=== PATIENT | female | born 1980 | race Caucasian/White ===

== ENCOUNTER 2022-06-02 08:19 | Outpatient (CLI) | payer OTHER, SELFPAY ==
[2022-06-02 08:50] LABS: Basophils Absolute Auto 0.1 K/mm3 (0.0-0.1); Basophils Percent Auto 0.8 % (0.2-1.2); Eosinophils Absolute Auto 0.3 K/mm3 (0-0.3); Eosinophils Percent Auto 2.5 % (0-4.4); Hematocrit 39.8 % (37.0-47.0); Hemoglobin 12.8 g/dL (12.0-15.0); Immature Granulocyte Absolute 0.05 K/mm3 (0.00-0.031); Immature Granulocyte Percent A 0.5 % (0-0.5); Lymphocytes Percent Auto 18.7 % (18.3-44.2); Mean Corpuscular HGB Conc 32.2 g/dl (32-36); Mean Corpuscular Hemoglobin 27.6 pg (26-34); Mean Corpuscular Volume 85.8 fl (80-100); Mean Platelet Volume 10.1 fl (7.4-10.4); Monocytes Absolute Auto 0.8 K/mm3 (0.1-0.6); Monocytes Percent Auto 8.2 % (2.6-8.5); Neutrophils Percent Auto 69.3 % (45.5-73.1); Platelet Count Result 423 k/mm3 (150-375); Red Blood Count 4.64 M/mm3 (4.2-5.4); Red Cell Distribution Width 14.3 % (11.5-14.5); White Blood Count 10.1 K/mm3 (4.5-10.0)
[2022-06-02 08:56] LABS: Anion Gap 6 mmol/L (8-16); Blood Urea Nitrogen 10 mg/dL (7-17); Calcium 8.8 mg/dL (8.4-10.2); Carbon Dioxide 27 mmol/L (22-30); Chloride 106 mmol/L (98-107); Estimated Glomerular Filt Rate > 60; Glucose 99 mg/dL (65-110); Potassium 3.8 mmol/L (3.4-5.0); Sodium 139 mmol/L (137-145)
== END 2022-06-02 08:20 | disposition home or self-care (01) ==
PROVIDERS: Anesthesiology; Visit Provider Obstetrics & Gynecology
DX: N81.4 Uterovaginal prolapse, unspecified (principal); E11.9 Type 2 diabetes mellitus without complications
CPT/HCPCS: 36415; 80048; 85025; 86850; 86900; 86901

== ENCOUNTER 2022-06-04 01:07 | Day surgery (SDC) | payer OTHER, SELFPAY ==
[2022-05-20 09:46] VITALS: BMI 27.2
--- NOTE | 2022-05-20 10:17 | PC.NURSE ---
Report to the Outpatient Waiting Room, entrance under the green pavilion located off [facility], at time _0730 on date 06/04/22. Planned Procedure Time: _0930. Time changes happen often and if your time is changed the preop area will call you the afternoon before. - You and your visitor will be asked to self-screen and do not enter if you have any COVID symptoms. - Only one visitor is requested with a max of two and NO children visitors are allowed at this time. - The patient visitor may be requested to leave or wait in car when not with patient due to distancing restrictions. - A mask is optional within the hospital. Patients may have clear liquids (water, carbonated beverages, clear teas, apple juice) until 3 hours prior to surgery with a maximum of 20 ounces. - No food from midnight until time of surgery - Infants may have breast milk until 4 hours before surgery, infant formula 6 hours prior to surgery. - Children will be allowed to drink immediately following surgery. If applicable, please bring a bottle or sippy cup to assist with drinking. Juice, water, soda, and popsicles are readily available. For infants on formula, please bring formula the day of surgery. Pacifiers are allowed. Take the following medications with a SIP of water the morning of surgery: HYDROXYZINE, sertraline Medications to discontinue per physician _vitamins__ Date to take last dose_06/01/22_ Please no make-up, nail uzbek, hairspray, perfume, deodorant, or body powder the day of surgery. No jewelry (including any body piercings) or valuables the day of surgery, leave them at home. Please take a shower or bath the night before, or the morning of, surgery with an antibacterial soap. Wear comfortable, loose fitting clothing. Children are encouraged to wear pajamas. - Jewelry must be removed prior to entering the operating room. Rings and piercings that are not removed may be cut off. - The hospital will not accept responsibility for valuables. - Please leave all valuables, including medications, at home the day of surgery. If you are going home after surgery, a licensed dedicated truck driver must drive you home. - NO public transportation without another adult if you receive anesthesia. - We recommend that an adult stay with you for 24 hours following discharge. - We also recommend that you do not drive, make important decision, drink alcoholic beverages, or take any drugs that were not prescribed by your health care provider for at least 24 hours after your discharge time. For Pediatric surgeries, we recommend two adults accompany the child home. Follow any additional instructions given to you from your surgeon. If you or anyone in your household have experienced Covid symptoms in the past week, please notify your surgeon or the nurse liaison at the phone number below for possible testing. Telephone instructions given to Ange Valencia_and asked if any additional questions and then verbalized understanding. Patient advised to call surgeon office or pre surgery nurse liaison [phone] if any additional questions.
--- NOTE | 2022-06-02 07:48 | PM.IMHP ---
H&P: HPI History of Present Illness Date/Time: 06/02/22 07:48 Chief Complaint: Pelvic pain and dysmenorrhea Narrative: Is a 41-year-old multiparous patient admitted for robotic hysterectomy and bilateral salpingectomy secondary to uterine prolapse pain and discomfort. She has painful periods and dyspareunia menorrhea. She has signed the [place] department of Public aid consent for hysterectomy. She understands this will make her permanently infertile. Risks and benefits including not exclusive of , aspiration pneumonia, bleeding, transfusion, perforation injury to bowel, bladder, ureters, or other internal organs with need for open laparotomy were reviewed. She had all questions answered and asked to proceed PMFSH Family History Family History Mother Hypertension Family history of diabetes mellitus in first degree relative Social History Social History Years smoked: 25 Smoking status: Current every day smoker Tobacco type: cigarettes Alcohol intake: current Substance use: current Substance use type: marijuana Last use: 05/20/22 Spiritual care concerns: No Meds Home Medications and Allergies Home Medications Medication Instructions Recorded Confirmed Type calcium carbonate 600 mg calcium 600 mg PO DAILY 04/16/22 05/20/22 History (1,500 mg) tablet (Calcium) cholecalciferol (vitamin D3) 50 50 mcg PO DAILY 04/16/22 05/20/22 History mcg (2,000 unit) capsule diclofenac sodium 1 % topical gel 2 g topical QID 04/16/22 05/20/22 History (Arthritis Pain (diclofenac)) dulaglutide 3 mg/0.5 mL 3 mg subcut WEEKLY 04/16/22 05/20/22 History subcutaneous pen injector (Trulicity) hydroxyzine HCl 25 mg tablet 25 mg PO TID PRN Anxiety 04/16/22 05/20/22 History pantoprazole 40 mg tablet,delayed 40 mg PO QAM 04/16/22 05/20/22 History release sertraline 50 mg tablet 150 mg PO DAILY 04/16/22 05/20/22 History Allergies Allergy/AdvReac Type Severity Reaction Status Date / Time No Known Allergies Allergy Unknown Verified 04/16/22 08:49 Exam Const: General: cooperative, healthy appearing and comfortable Nutritional Appearance: average body habitus Orientation/consciousness: oriented to person, oriented to place and oriented to time HENMT: Head: normal to inspection Resp: Effort & Inspection: normal respiratory effort Cardio: Rate: regular rate Rhythm: regular rhythm Heart sounds: S1 normal heart sound present and S2 normal heart sound present GI: Inspection: normal to inspection : Speculum Exam - Vagina: normal appearance of the vagina Speculum Exam - Cervix: normal appearance of the cervix and Cervical os closed Bimanual exam- vagina & uterus: boggy, enlarged and Uterus displaced (Second-degree prolapse) Bimanual Exam- Adnexa, other: normal adnexae Assessment and Plan Assessment and plan (1) Uterine prolapse: Code(s): N81.4 - Uterovaginal prolapse, unspecified Status: Acute (2) Pelvic pain: Code(s): R10.2 - Pelvic and perineal pain Status: Acute (3) Dysmenorrhea: Code(s): N94.6 - Dysmenorrhea, unspecified Status: Acute Plan Robotic total vaginal hysterectomy and bilateral salpingectomy
--- NOTE | 2022-06-03 10:41 | WPDANESEPPF ---
Anes - Initial Pre Proc Eval Procedure: Operation Date: 06/04/22 09:30 Proposed Procedures p Robotic Assisted Total Vaginal Hysterectomy with Bilateral Salpingectomy - Prem Mendes MD Date/Time: 06/03/22 10:41 Surgeon: Prem Mendes MD Pre Op Diagnosis: uterine prolapse, pelvic pain, dysmenorrhea Patient Data Age: 41 Gender: F Height: 1.63 m Weight: 72 kg Allergies Allergy/AdvReac Type Severity Reaction Status Date / Time No Known Allergies Allergy Unknown Verified 06/04/22 07:37 Home Medications Medication Instructions Recorded Confirmed Type calcium carbonate 600 mg calcium 600 mg PO DAILY 04/16/22 05/20/22 History (1,500 mg) tablet (Calcium) cholecalciferol (vitamin D3) 50 50 mcg PO DAILY 04/16/22 05/20/22 History mcg (2,000 unit) capsule diclofenac sodium 1 % topical gel 2 g topical QID 04/16/22 05/20/22 History (Arthritis Pain (diclofenac)) dulaglutide 3 mg/0.5 mL 3 mg subcut WEEKLY 04/16/22 05/20/22 History subcutaneous pen injector (Trulicity) hydroxyzine HCl 25 mg tablet 25 mg PO TID PRN Anxiety 04/16/22 05/20/22 History pantoprazole 40 mg tablet,delayed 40 mg PO QAM 04/16/22 05/20/22 History release sertraline 50 mg tablet 150 mg PO DAILY 04/16/22 05/20/22 History hydrocodone 5 mg-acetaminophen 325 1 tablet PO Q4H PRN pain #30 tabs 06/04/22 Rx mg tablet Patient hx anesthesia problems: none Family hx anesthesia problems: none Results Review: All pre-operative results and documents have been reviewed as part of the pre-operative evaluation. [facility] Past Medical History Medical History (Updated 06/04/22 @ 07:18 by Sonny Alarcon DO) Anxiety GERD (gastroesophageal reflux disease) Family History Family History Mother Hypertension Family history of diabetes mellitus in first degree relative Social History Social History (Updated 06/04/22 @ 07:53 by Sonny Alarcon DO) Years smoked: 25 Smoking status: Current every day smoker Tobacco type: cigarettes Alcohol intake: current Substance use: current Substance use type: marijuana Other substance usage details: daily Last use: 06/03/22 Spiritual care concerns: No Anes - Eval Final PreProcedure Day of Procedure 06/03/22 10:41 Patient weight: overweight Heart: regular rate and rhythm Lungs: clear to auscultation Airway: Mallampati scale class II Neurological: alert and oriented Last oral intake: >/= 8 hours ASA classification: III Emergent: no Anesthetic plan: proceed Anesthesia type and monitoring: general ETT and standard monitoring Results Review: All pre-operative results and documents have been reviewed as part of the pre-operative evaluation. Informed Consent: The patient's anesthetic plan and its attendant risks and benefits were discussed with the patient/family/POA. Questions were solicited and answers provided to the satisfaction of the patient/family/POA.
[2022-06-04] VITALS (12 sets, daily range): BP systolic 98–122; BP diastolic 56–78; PULSE 55–100; RESP 14–22; TEMP 36.7–37.2; O2SAT 93–100
--- NOTE | 2022-06-04 06:15 | WPDHPUPDATE1 ---
History and Physical Update Update Date/Time: 06/04/22 06:15 History and Physical has been reviewed, including an updated exam of the patient. There are NO changes in the patient's condition. Risks, benefits, and alternatives have been discussed and questions answered. Patient agrees to proceed with procedure.
[2022-06-04] MEDS: ACETAMINOPHEN 500 MG TABLET 1000 MG PO (07:41)
[2022-06-04] MEDS: LACTATED RINGERS 1,000 ML 30 ML IV CONT ×2 (08:08→10:20)
[2022-06-04] MEDS: KETOROLAC 15 MG/ML VIAL (*BKC) IV PUSH (08:09)
[2022-06-04] MEDS: ceFAZolin 2 GM/D5W 50 ML 2 GM/50 ML BAG IVPB (09:06)
[2022-06-04] MEDS: fentaNYL CITRATE INJ (*CRX) 100 MCG/2 ML VIAL 25 MCG IV PUSH ×6 (10:20→11:48)
--- NOTE | 2022-06-04 12:00 | PC.NURSE ---
Patient transferred to post room #288 via (stretcher ). Support person present. Oriented to unit, room, information board, rooming in, admission packet and security measures. Patient verbalizes understanding.
[2022-06-04] MEDS: HYDROcodone/acetaminophen (*CRX) 10-325 MG TABLET 1 TAB PO ×3 (12:17→22:32)
[2022-06-04] MEDS: DEXTROSE 5%/LACTATED RINGERS 1,000 ML 125 ML IV CONT (12:17)
[2022-06-04] MEDS: DOCUSATE SODIUM 100 MG CAPSULE PO (15:11)
[2022-06-04] MEDS: HYDROcodone/acetaminophen (*CRX) 5-325 MG TABLET 1 TAB PO (19:34)
[2022-06-04] MEDS: IBUPROFEN 600 MG TABLET PO (19:35)
[2022-06-05 04:00] VITALS: BP 93/57; PULSE 66; RESP 18; TEMP 36.8
[2022-06-05] MEDS: HYDROcodone/acetaminophen (*CRX) 10-325 MG TABLET 1 TAB PO ×2 (04:06→07:32)
[2022-06-05] MEDS: SIMETHICONE 80 MG TAB.CHEW PO ×2 (04:07→07:32)
[2022-06-05] MEDS: IBUPROFEN 600 MG TABLET PO (04:07)
[2022-06-05 04:54] LABS: Basophils Absolute Auto 0.1 K/mm3 (0.0-0.1); Basophils Percent Auto 0.4 % (0.2-1.2); Eosinophils Percent Auto 0.2 % (0-4.4); Hematocrit 31.9 % (37.0-47.0); Hemoglobin 10.2 g/dL (12.0-15.0); Immature Granulocyte Absolute 0.09 K/mm3 (0.00-0.031); Immature Granulocyte Percent A 0.5 % (0-0.5); Lymphocytes Absolute Auto 1.85 K/mm3 (0.9-3.2); Lymphocytes Percent Auto 10.4 % (18.3-44.2); Mean Corpuscular Hemoglobin 27.6 pg (26-34); Mean Corpuscular Volume 86.2 fl (80-100); Mean Platelet Volume 10.6 fl (7.4-10.4); Monocytes Absolute Auto 1.3 K/mm3 (0.1-0.6); Monocytes Percent Auto 7.3 % (2.6-8.5); Neutrophils Absolute Auto 14.5 K/mm3 (1.3-6.7); Neutrophils Percent Auto 81.2 % (45.5-73.1); Platelet Count Result 345 k/mm3 (150-375); Red Cell Distribution Width 14.1 % (11.5-14.5); White Blood Count 17.8 K/mm3 (4.5-10.0)
[2022-06-05 07:25] VITALS: BP 100/67; PULSE 70; RESP 19; TEMP 36.6; O2SAT 98
[2022-06-05] MEDS: DOCUSATE SODIUM 100 MG CAPSULE PO (07:32)
[2022-06-05] MEDS: ENOXAPARIN 40 MG/0.4 ML SYRINGE SUB-Q (07:33)
--- NOTE | 2022-06-05 09:36 | PM.GYNPNOP ---
OVERNIGHT ASSOCIATE - A/P Assessment and plan (1) Dysmenorrhea: Code(s): N94.6 - Dysmenorrhea, unspecified Status: Acute Assessment and Plan: A: Pain and prolapse, now POD#1 s/p robotic assisted TVHBS, doing well. P: Home to f/u 2 weeks. (2) Pelvic pain: Code(s): R10.2 - Pelvic and perineal pain Status: Acute (3) Uterine prolapse: Code(s): N81.4 - Uterovaginal prolapse, unspecified Status: Acute Postoperative Procedures: Procedures Operation Date: 06/04/22 09:30 Actual Procedure Side Surgeon p Robotic Assisted Total Vaginal Hysterectomy with Bilateral Salpingectomy Bilateral Prem Mendes MD Postoperative day: 1 Time Spent With Patient Time with patient: less than 15 minutes OVERNIGHT ASSOCIATE- PN:Subj Post-Op Subjective Date/time seen: 06/05/22 09:36 Interval history: Pain OK. Tolerating diet. Voiding. Would like to go home. Exam Narrative: AVSS I/O OK ABD soft, nontender. Incisions c/d/i. EXT nontender OVERNIGHT ASSOCIATE - PN: Obj Data Vital Signs Vital Signs: Vital Signs - 24 hr 06/04/22 10:20 06/04/22 10:35 06/04/22 10:50 Temperature 36.9 C Pulse Rate 60 55 L 65 Respiratory Rate 22 H 18 18 Blood Pressure 122/78 104/67 113/73 Pulse Oximetry 100 100 100 Oxygen Delivery Simple Face Mask Simple Face Mask Room Air Oxygen Flow Rate 8 8 06/04/22 11:05 06/04/22 11:20 06/04/22 11:35 Temperature Pulse Rate 60 58 L 58 L Respiratory Rate 16 16 14 Blood Pressure 99/67 L 98/62 L 102/59 L Pulse Oximetry 97 95 93 Oxygen Delivery Room Air Room Air Room Air Oxygen Flow Rate 06/04/22 11:50 06/04/22 12:00 06/04/22 12:10 Temperature 37.2 C Pulse Rate 61 81 Respiratory Rate 16 16 Blood Pressure 103/63 112/64 Pulse Oximetry 94 98 Oxygen Delivery Room Air Room Air Oxygen Flow Rate 06/04/22 16:00 06/04/22 20:00 06/04/22 20:00 Temperature 37.2 C 36.7 C Pulse Rate 100 72 Respiratory Rate 16 18 Blood Pressure 116/67 101/56 L Pulse Oximetry 98 Oxygen Delivery Room Air Oxygen Flow Rate 06/04/22 23:16 06/04/22 23:19 06/05/22 04:00 Temperature 36.7 C 36.8 C Pulse Rate 71 66 Respiratory Rate 18 18 Blood Pressure 105/61 93/57 L Pulse Oximetry Oxygen Delivery Room Air Oxygen Flow Rate 06/05/22 04:23 06/05/22 07:25 Temperature 36.6 C Pulse Rate 70 Respiratory Rate 19 Blood Pressure 100/67 Pulse Oximetry 98 Oxygen Delivery Room Air Oxygen Flow Rate Intake/Output Intake/Output: Intake & Output 06/02/22 06/03/22 06/04/22 06/05/22 23:59 23:59 23:59 23:59 Intake Total 4530 Output Total 2750 Balance 1780 Meds/Results Medications: Active Medications Generic Name Dose Route Start Last Admin Trade Name Freq PRN Reason Stop Dose Admin Hydrocodone Bitart/Acetaminophen 1 tab 06/04/22 11:55 06/04/22 19:34 Hydrocodone/Acetaminophen (*Crx) 5-325 Mg Tablet PO 1 tab Q3H PRN Administration Pain Rated 5 or Less Hydrocodone Bitart/Acetaminophen 1 tab 06/04/22 11:55 06/05/22 07:32 Hydrocodone/Acetaminophen (*Crx) 10-325 Mg Tablet PO 1 tab Q3H PRN Administration Pain Rated 6 or Greater Docusate Sodium 100 mg 06/04/22 17:00 06/05/22 07:32 Docusate Sodium 100 Mg Capsule PO 100 mg BID OTILIO Administration Enoxaparin Sodium 40 mg 06/05/22 09:00 06/05/22 07:33 Enoxaparin 40 Mg/0.4 Ml Syringe SUB-Q 40 mg DAILY OTILIO Administration Ibuprofen 600 mg 06/04/22 11:55 06/05/22 04:07 Ibuprofen 600 Mg Tablet PO 600 mg Q6H PRN Administration Cramping Ketorolac Tromethamine 30 mg 06/04/22 11:55 Ketorolac 30 Mg/Ml Vial (*Bkc) IV PUSH 06/09/22 11:54 Q6H PRN Pain Rated 4-6 Naloxone HCl 0.1 mg 06/04/22 11:55 Naloxone Hcl 0.4 Mg/Ml Vial IV PUSH Q2M PRN Respiratory rate less than 10 Ondansetron HCl 4 mg 06/04/22 11:55 Ondansetron Inj 4 Mg/2 Ml Vial IV PUSH Q6H PRN Nausea And Vomiting Simethicone 80 mg 06/04
--- NOTE | 2022-06-05 09:37 | PM.DS ---
DS: Admitting Diagnosis Discharge Date 06/05/22 Admitting Diagnosis Pelvic pain Prolapse DS: Discharge Diagnosis Discharge Diagnosis (1) Dysmenorrhea: Code(s): N94.6 - Dysmenorrhea, unspecified Status: Acute (2) Pelvic pain: Code(s): R10.2 - Pelvic and perineal pain Status: Acute (3) Uterine prolapse: Code(s): N81.4 - Uterovaginal prolapse, unspecified Status: Acute DS: Summary Hospital Course Hospital Course: Admitted on date of scheduled surgery. Did well postoperatively and was sent home on POD#1. Time Spent with Patient Time attestation: Total time spent providing and/or coordinating discharge services: DS: Data Data Completed and Pending Pending studies at discharge: Pending at discharge 06/04/22 09:41 Surgical [PTH] Routine Labs on day of discharge: Labs from last 24 hours 06/05/22 03:58 WBC 17.8 H RBC 3.70 L Hgb 10.2 L Hct 31.9 L MCV 86.2 MCH 27.6 MCHC 32.0 RDW 14.1 Plt Count 345 MPV 10.6 H Immature Gran % (Auto) 0.5 Neut % (Auto) 81.2 H Lymph % (Auto) 10.4 L [place] % (Auto) 7.3 Eos % (Auto) 0.2 Baso % (Auto) 0.4 Lymph # (Auto) 1.85 [place] # (Auto) 1.3 H Eos # (Auto) 0.0 Baso # (Auto) 0.1 Abs Immat Gran (auto) 0.09 H Absolute Neuts (auto) 14.5 H Absolute Nucleated RBC 0.0 Nucleated RBC % 0.0 Discharge Plan Discharge Patient Disposition: Home, Self-Care Discharge Instructions: Nothing in vagina for six weeks. Call or return if temperature above 100.4? F, increased abdominal pain, increased vaginal bleeding or any new problems. Patient Instructions: How to Stop Smoking (GEN) Stand Alone Forms: General Discharge Instructions Follow-up/Referrals: Prem Grijalva MD [Physician] - 2 Weeks Discharge Medications: New hydrocodone-acetaminophen 5-325 mg tablet 1 tablet PO Q4H PRN (Reason: pain) Qty: 30 0RF Continued Trulicity 3 mg/0.5 mL pen injector 3 mg subcut WEEKLY Label Comments: takes on , i spoke with dr jackson and he was ok with patient taking on TUESDAY diclofenac sodium [Arthritis Pain (diclofenac)] 1 % gel 2 g topical QID Rx Instructions: apply to single elbow, wrist or hand; for hand includes palm/fingers/back of hand sertraline 50 mg tablet 150 mg PO DAILY hydroxyzine HCl 25 mg tablet 25 mg PO TID PRN (Reason: Anxiety) pantoprazole 40 mg tablet,delayed release (DR/EC) 40 mg PO QAM calcium carbonate [Calcium 600] 600 mg calcium (1,500 mg) tablet 600 mg PO DAILY cholecalciferol (vitamin D3) 50 mcg (2,000 unit) capsule 50 mcg PO DAILY
--- NOTE | 2022-06-05 10:35 | PC.NURSE ---
Ronak Odom RN has looked over and approved patient's charting that Joceline Engel, Student RN, has completed.
--- NOTE | 2022-06-05 10:45 | PC.NURSE ---
RN called patient, she had left her discharge paperwork at the hospital and is unable to return. Per patient ok to mail her the instructions. She was given verbal instructions as well.
--- NOTE | 2022-06-09 07:43 | P.OP_ITS ---
Procedure Note - Detailed Date of Procedure 06/09/22 Pre-op Diagnosis uterine prolapse, pelvic pain, dysmenorrhea Post-op Diagnosis Same Procedure Performed Robotic total vaginal hysterectomy and bilateral salpingectomy Surgeon Prem Mendes MD Anesthesia General Indications Is a 41-year-old female admitted for hysterectomy bilateral salpingectomy Findings Enlarged uterus. Normal-appearing ovaries and tubes Description of Procedure Patient was prepped draped in the sterile fashion placed in the dorsal lithotomy position. Under excellent general trach anesthesia weighted speculum placed posterior fornix vagina. Anterior lip of the cervix grasped with single-tooth tenaculum. Uterus sounded 10cm. Serial dilatation with fragmented dilators performed followed by passes 10. MARISELA and the 3. Cold cup. Next a 16 [place] catheter was placed in bladder and the bladder drained clear urine. The weighted speculum was removed gloves were changed. A supraumbilical incision made the Veress needle passed in the abdomen. Abdomen filled with CO2 gas [id number] mercury. The 8mm trocar advanced abdomen downside visualized no injury seen. Gas reattached patient placed in Trendelenburg. Eight the 8mm trocar advanced in the abdomen downside visualized or seen. Patient placed in Trendelenburg and right left lateral quadrant incisions made 8mm trocars advanced under direct visualization right upper quadrant incision made and the 8mm trocar advanced under direct visualization assuring no injury. The robot was docked. Attention was turned to the console. The left round ligament was grasped, burned, cut anteriorly bladder flap was formed by sharply dissecting the bladder peritoneum and reflecting it left caudally away from the cervix uterus absent round ligament was clamped, burned, cut. Next left fallopian tube was sharply dissected away from the ovarian complex left to the uterine origin. This was repeated on the contralateral breanna. The utero-ovarian ligament on left was clamped, burned, cut brought low Veress cut round ligament this repeated on the contralateral side conserving the right ovary. Next the cardinal broad ligaments on the left were serially skeletonized clamping burning cutting bringing this down lateral edge until uterine vessels could be seen on the left these were serially clamped, burned, cut. Next the cardinal broad ligaments on the right were serially skeletonized clamping burning cutting into the uterine vessels be seen on the right these were individually clamped, burned, cut. Blanching of the uterus was noted. Colpotomy incision was made cervix uterus and tubes removed through the vagina. The vagina then closed with continuous running 0V lock from lateral edge to lateral edge back to the midline. Irrigation undertaken until clear. The robot was undocked gas removed from the abdomen. The trocars removed the incisions closed with 4 Monocryl glue. Number no immediate complications patient was awakened and went recovery in satisfacto ry condition Estimated Blood Loss -25.0 Urine Output 500 Drains No Packing No Pathology Yes Complications No immediate complications Condition Stable Disposition PACU
== END 2022-06-05 10:35 | disposition home or self-care (01) ==
LOC: ANHSURGERY 07:21 → ANHOB2 11:58
PROVIDERS: Visit Provider Obstetrics & Gynecology
PROC: (CPT 58552; principal; 2022-06-04 09:30)
DX: N81.4 Uterovaginal prolapse, unspecified (principal); D25.1 Intramural leiomyoma of uterus; N72 Inflammatory disease of cervix uteri; N83.8 Other noninflammatory disorders of ovary, fallopian tube and broad ligament; R10.2 Pelvic and perineal pain; N94.6 Dysmenorrhea, unspecified; F41.9 Anxiety disorder, unspecified; K21.9 Gastro-esophageal reflux disease without esophagitis; F17.210 Nicotine dependence, cigarettes, uncomplicated; F12.90 Cannabis use, unspecified, uncomplicated; Z79.899 Other long term (current) drug therapy
CPT/HCPCS: 58552; S2900; 36415; 85025; 88307; 99199; A9270; J0330; J0690; J1100; J1170; J1650; J1885; J2250; J2405; J2704; J2710; J3010; J7030; J7120; J7121

== ENCOUNTER 2022-09-28 09:05 | Outpatient (CLI) | payer OTHER, SELFPAY ==
--- NOTE | ~2022-09-28 | CT_ITS ---
CT Scan of the Chest without Contrast: Clinical Indication: Lung nodules Technique: Contiguous sections were acquired throughout the chest without intravenous contrast. Dose reduction technique was used on this scan by utilizing automated exposure control and iterative recon struction technique. The dose-length product (DLP) was 87.38 mGy-cm. Findings: There is no evidence of any significant mediastinal, hilar or axillary lymphadenopathy. Small calcifi ed mediastinal and hilar lymph nodes are present. The mediastinal soft tissues appear normal. There is no evidence of pleural or pericardial effusion. Multiple scattered calcified granulomas are present. No suspicious pulmonary nodule seen. Images through the upper abdomen reveal no abnormalities. Impression: Evidence of prior granulomatous disease. No acute abnormality or suspicious pulmonary nodule seen. Reviewed, dictated and finalized at [facility]. Impression: Evidence of prior granulomatous disease. No acute abnormality or suspicious pulmonary nodule seen.
== END 2022-09-28 09:06 | disposition home or self-care (01) ==
PROVIDERS: Visit Provider Internal Medicine Pulmonary Disease
DX: R91.8 Other nonspecific abnormal finding of lung field (principal)
CPT/HCPCS: 71250